=== PATIENT | male | born 1930 | race Caucasian/White ===

== ENCOUNTER 2018-04-27 15:53 | Emergency (ER) | payer OTHER ==
[~2018-04-27] VITALS: Ht 172.7 cm; Wt 68.0 kg
[~2018-04-27 15:53] MED LIST: ALBU90OI6 INH; AMOX50SU PO; ASPI81CH PO; Advair Hfa 230-12 GM INH; CELE200 PO; DIAZ5 PO; DIFL500; DILT240; DULO30 PO; DULO60; FURO20 PO; FURO40 PO; GABA300 PO; GLIM2 PO; GLIP5 PO; GLYB5; HYDR1TAB94 PO; HYDROCODON-ACE1 EAC3 PO; IBUP600 PO; ISOMON30; LISI5 PO; MECL25 PO; METF500; METF500 PO; METO2.5 PO; METO50ER PO; NEBI5 PO; NITR.4SL; NORT10 PO; OMEP20ER PO; OXYACE5T PO; POTCHL10ER PO; Prinivil10 MG PO; RXERYTOPTH OS; TAMS.4ER; WATER PILL
[2018-04-27 16:46] LABS: BASOPHILS ABSOLUTE AUTO 0.01 K/mm3 (0.00-0.23); BASOPHILS PERCENT AUTO 0 % (0-2); EOSINOPHILS ABSOLUTE AUTO 0.08 K/mm3 (0.00-0.68); EOSINOPHILS PERCENT AUTO 1 % (0-6); Hemoglobin 14.1 g/dL (13.5-17.5); IMMATURE GRAN ABSOLUTE AUTO 0.05 K/mm3 (0.00-0.10); IMMATURE GRAN PERCENT AUTO 1 % (0-1); LYMPHOCYTES ABSOLUTE AUTO 1.64 K/mm3 (0.84-5.20); LYMPHOCYTES PERCENT AUTO 20 % (21-46); MONOCYTES ABSOLUTE AUTO 0.88 K/mm3 (0.16-1.47); MONOCYTES PERCENT AUTO 11 % (4-13); Mean Corpuscular HGB 33.9 pg (26.0-34.0); Mean Corpuscular HGB Conc 34.4 g/dL (31.5-36.5); Mean Corpuscular Volume 99 fL (80-100); Mean Platelet Volume 9.6 fL (9.1-12.4); NEUTROPHILS ABSOLUTE AUTO 5.69 K/mm3 (1.96-9.15); NEUTROPHILS PERCENT AUTO 68 % (41-73); Platelet Count 133 K/mm3 (150-400); RDW Coefficient Variation 12.4 % (11.7-14.2); RDW Standard Deviation 45.1 fL (35.1-46.3); Red Blood Cell Count 4.16 M/mm3 (4.30-5.90); White Blood Cell Count 8.35 K/mm3 (4.00-11.30)
[2018-04-27 16:58] LABS: Prothrombin Time Results 10.3 Sec (9.7-11.5)
[2018-04-27 17:05] LABS: Alanine Aminotransfer (ALT/SGP 26 U/L (12-78); Albumin, Blood 3.5 g/dL (3.4-5.0); Alk Phos 75 U/L (50-136); Anion Gap 8 mmol/L (6-16); Aspartate Aminotrans (AST/SGOT 16 U/L (12-37); Bilirubin, Total 0.8 mg/dL (0.1-1.0); Blood Urea Nitrogen 17 mg/dL (8-24); Bun/Creatinine Ratio 18.8 (12.0-20.0); CO2, Blood 30 mmol/L (21-32); Calcium, Blood 9.2 mg/dL (8.5-10.1); Chloride, Blood 102 mmol/L (98-108); Globulin, Blood 3.6 g/dL (2.2-4.0); Glomerular Filtration Rate >60 (60-); Glucose, Blood 155 mg/dL (70-99); Sodium, Blood 140 mmol/L (136-145); Total Protein, Blood 7.1 g/dL (6.4-8.2)
[2018-04-27] MEDS ORDERED: Norco 5-325 Ta1 EACH PO (17:58)
[2018-04-27] MEDS ORDERED: ONDA4ODT MM (17:58)
== END 2018-04-27 18:30 | disposition home or self-care (01) ==
LOC: ER 15:53
PROVIDERS: Physician Assistant
DX: S16.1XXA Strain of muscle, fascia and tendon at neck level, initial encounter (principal); S00.81XA Abrasion of other part of head, initial encounter; S80.02XA Contusion of left knee, initial encounter; S20.219A Contusion of unspecified front wall of thorax, initial encounter; Z23 Encounter for immunization; E11.9 Type 2 diabetes mellitus without complications; Z79.82 Long term (current) use of aspirin; Z79.899 Other long term (current) drug therapy; Z79.84 Long term (current) use of oral hypoglycemic drugs; Z87.891 Personal history of nicotine dependence; W18.30XA Fall on same level, unspecified, initial encounter
CPT/HCPCS: 70450; 71260; 72125; 74177; 80053; 83690; 85025; 85610; 85730; 90714; 96372; 96374; 96375; 99285-25; J3010; Q9967

== ENCOUNTER 2019-04-05 15:31 | Observation (INO) | payer OTHER ==
[~2019-04-05] VITALS: Ht 172.7 cm; Wt 72.5 kg
[~2019-04-05 15:31] MED LIST changes: +Norco 5-325 Ta1 EACH PO; -OMEP20ER PO; +ONDA4ODT MM; +Prilosec Otc20 MG PO
[2019-04-05 15:48] LABS: Source, Urine Catheter
[2019-04-05 15:53] LABS: BASOPHILS ABSOLUTE AUTO 0.02 K/mm3 (0.00-0.23); BASOPHILS PERCENT AUTO 0 % (0-2); EOSINOPHILS ABSOLUTE AUTO 0.09 K/mm3 (0.00-0.68); EOSINOPHILS PERCENT AUTO 1 % (0-6); Hematocrit 43.1 % (37.0-53.0); Hemoglobin 14.4 g/dL (13.5-17.5); IMMATURE GRAN ABSOLUTE AUTO 0.03 K/mm3 (0.00-0.10); IMMATURE GRAN PERCENT AUTO 0 % (0-1); LYMPHOCYTES ABSOLUTE AUTO 2.29 K/mm3 (0.84-5.20); LYMPHOCYTES PERCENT AUTO 27 % (21-46); MONOCYTES PERCENT AUTO 8 % (4-13); Mean Corpuscular HGB 33.6 pg (26.0-34.0); Mean Corpuscular HGB Conc 33.4 g/dL (31.5-36.5); Mean Corpuscular Volume 101 fL (80-100); Mean Platelet Volume 9.2 fL (9.1-12.4); NEUTROPHILS ABSOLUTE AUTO 5.27 K/mm3 (1.96-9.15); NEUTROPHILS PERCENT AUTO 63 % (41-73); Platelet Count 120 K/mm3 (150-400); RDW Coefficient Variation 12.7 % (11.7-14.2); RDW Standard Deviation 47.2 fL (35.1-46.3); Red Blood Cell Count 4.28 M/mm3 (4.30-5.90)
[2019-04-05 15:56] LABS: Bilirubin, Urine Neg (Neg); Blood, Urine Neg (Neg); Glucose Qualitative, Urine Neg (Neg); Ketones, Urine Neg (Neg); Leukocyte Esterase, Urine Neg (Neg); Nitrite, Urine Neg (Neg); Protein, Urine Neg (Neg); Urobilinogen, Urine NORM (Normal)
[2019-04-05 16:07] LABS: Appearance, Urine Clear (Clear); Color, Urine Yellow (P-Yellow)
[2019-04-05 16:10] LABS: U Amphetamine Screen Not Detected; U Barbituate Screen Not Detected; U Benzodiazapine Screen Not Detected; U Buprenorphine Screen Not Detected; U Cannabinoids Screen Not Detected; U Cocaine Screen Not Detected; U Methadone Screen Not Detected; U Methamphetamine Screen Not Detected; U Opiates Screen DETECTED; U Oxycodone Screen Not Detected; U Phencyclidine Screen Not Detected; U Propoxyphene Screen Not Detected
[2019-04-05 16:13] LABS: Alanine Aminotransfer (ALT/SGP 15 U/L (12-78); Albumin, Blood 3.8 g/dL (3.4-5.0); Albumin/Globulin Ratio 1.1 (0.8-1.8); Alk Phos 83 U/L (50-136); Anion Gap 7 mmol/L (6-16); Aspartate Aminotrans (AST/SGOT 14 U/L (12-37); Bilirubin, Total 0.9 mg/dL (0.1-1.0); Blood Urea Nitrogen 16 mg/dL (8-24); Bun/Creatinine Ratio 16.8 (12.0-20.0); CO2, Blood 30 mmol/L (21-32); Calcium, Blood 8.9 mg/dL (8.5-10.1); Chloride, Blood 101 mmol/L (98-108); Creatinine, Blood 0.95 mg/dL (0.60-1.20); Ethanol (Alcohol), Blood, Med <3 mg/dL; Globulin, Blood 3.5 g/dL (2.2-4.0); Glomerular Filtration Rate >60 (60-); Glucose, Blood 138 mg/dL (70-99); Potassium, Blood 3.8 mmol/L (3.5-5.5); Sodium, Blood 138 mmol/L (136-145); Total Protein, Blood 7.3 g/dL (6.4-8.2)
[2019-04-05 17:40] LABS: International Normalized Ratio 0.97; Prothrombin Time Results 10.3 Sec (9.7-11.5)
[2019-04-05 17:43] LABS: Magnesium, Blood 2.3 mg/dL (1.6-2.4); Troponin I <0.015 ng/mL (0.000-0.040)
[2019-04-06 05:28] LABS: Anion Gap 6 mmol/L (6-16); Blood Urea Nitrogen 20 mg/dL (8-24); Bun/Creatinine Ratio 19.4 (12.0-20.0); CO2, Blood 32 mmol/L (21-32); Calcium, Blood 8.9 mg/dL (8.5-10.1); Chloride, Blood 100 mmol/L (98-108); Creatinine, Blood 1.03 mg/dL (0.60-1.20); Glomerular Filtration Rate >60 (60-); Glucose, Blood 112 mg/dL (70-99); Potassium, Blood 3.5 mmol/L (3.5-5.5); Sodium, Blood 138 mmol/L (136-145)
--- NOTE | 2019-04-06 06:35 | NUR ---
a+o but very big sandy, able to walk to bathroom with stand by assist due to hx of falls, room air, iv in rac, call light in reach, no s/sx of nonresponsiveness, confused as to time due to time lost being unconcious, will continue to monitor, treat and assist until bsr given to incoming day shift
[2019-04-06] MEDS ORDERED: DONE10 PO (11:27)
--- NOTE | 2019-04-06 18:30 | NUR ---
PATIENT A/OX4, UP WITH FWW AND 1 ASSIST TO RESTROOM. REPORTS SEVERE PAIN TO FEET AND BACK, TYLENOL AND GABAPENTIN GIVEN TO TREAT. 16G IV TO RONEN WNL AND SL. PATIENT TOLERATING CARDIAC DIET. LARGE BRUISE TO R SIDE OF FACE/EYE FROM RECENT FALL. FALL PRECAUTIONS IN PLACE PER UNIT PROTOCOL. VSS THIS SHIFT. NSR WITH FIRST DEG BLOCK ON TELE. ACHS BLOOD SUGARS, ORAL MEDS TO CONTROL. PATIENT IS CALM AND COOPERATIVE WITH CARE, USES CALL LIGHT APPROPRIATELY FOR ASSISTANCE.
[2019-04-07 04:49] LABS: Hematocrit 41.2 % (37.0-53.0); Hemoglobin 13.7 g/dL (13.5-17.5); Mean Corpuscular HGB 33.3 pg (26.0-34.0); Mean Corpuscular HGB Conc 33.3 g/dL (31.5-36.5); Mean Corpuscular Volume 100 fL (80-100); Mean Platelet Volume 9.4 fL (9.1-12.4); Platelet Count 121 K/mm3 (150-400); RDW Coefficient Variation 12.8 % (11.7-14.2); RDW Standard Deviation 47.4 fL (35.1-46.3); Red Blood Cell Count 4.12 M/mm3 (4.30-5.90); White Blood Cell Count 8.35 K/mm3 (4.00-11.30)
[2019-04-07 05:02] LABS: Anion Gap 6 mmol/L (6-16); Blood Urea Nitrogen 27 mg/dL (8-24); Bun/Creatinine Ratio 24.3 (12.0-20.0); CO2, Blood 31 mmol/L (21-32); Calcium, Blood 8.9 mg/dL (8.5-10.1); Chloride, Blood 101 mmol/L (98-108); Creatinine, Blood 1.11 mg/dL (0.60-1.20); Glomerular Filtration Rate >60 (60-); Glucose, Blood 99 mg/dL (70-99); Sodium, Blood 138 mmol/L (136-145)
--- NOTE | 2019-04-07 05:20 | NUR ---
Rn summary: Patient is alert and oriented. He is very [place]. Pt is up to BR with 1 assist and walker. Patient did sit up in his chair at beginning of shift. Pt has rested well in bed. Cooperative and pleasant. BP runs a little low, decreasing if he is sitting up. Pt has not used call light, bed alarm on for safety. Frequent checks. Plan is for him to be DC'd home today.
[2019-04-07] MEDS ORDERED: Prinivil10 MG PO (10:45)
--- NOTE | 2019-04-07 11:20 | NUR ---
PATIENT D/C'D TO HOME WITH . D/C INSTRUCTIONS AND EDUCATION DISCUSSED WITH PATIENT AND COPY PROVIDED. PATIENT DENIES ANY FURTHER QUESTIONS OR CONCERNS.RX MEDICATIONS FAXED TO [facility].
--- NOTE | 2019-04-07 14:31 | NUR ---
Pt. reportsdoing well, encouraged pt. and pt. may go home today or [facility].
== END 2019-04-07 11:25 | disposition home or self-care (01) ==
LOC: ER 15:31 → ERHOLD 15:32 → MEDS 19:28 → ENPENDDIS 04-07 10:17 → MEDS 04-07 11:25
PROVIDERS: Emergency Medicine; Internal Medicine; Nurse Practitioner Acute Care; ADMIT Internal Medicine
DX: I95.1 Orthostatic hypotension (principal); G92 Toxic encephalopathy; J44.9 Chronic obstructive pulmonary disease, unspecified; I10 Essential (primary) hypertension; K21.9 Gastro-esophageal reflux disease without esophagitis; F32.9 Major depressive disorder, single episode, unspecified; R10.9 Unspecified abdominal pain; E11.40 Type 2 diabetes mellitus with diabetic neuropathy, unspecified; Z79.899 Other long term (current) drug therapy; Z79.01 Long term (current) use of anticoagulants
CPT/HCPCS: 36415; 51702; 70450; 71045; 80048; 80053; 81003; 82947; 83735; 84443; 84484; 85025; 85027; 85379; 85610; 93005; 93010; 94640; 94760; 96372; 96374-59; 97110; 97116; 97162; 99285-25; A9270; G0378; G0480; J1650; J2310

== ENCOUNTER 2019-04-25 17:48 | Observation (INO) | payer OTHER ==
[~2019-04-25] VITALS: Ht 177.8 cm; Wt 80.0 kg
[~2019-04-25 17:48] MED LIST changes: +DONE10 PO
[2019-04-25 18:20] LABS: BASOPHILS PERCENT AUTO 0 % (0-2); EOSINOPHILS ABSOLUTE AUTO 0.08 K/mm3 (0.00-0.68); EOSINOPHILS PERCENT AUTO 1 % (0-6); Hematocrit 36.7 % (37.0-53.0); Hemoglobin 12.2 g/dL (13.5-17.5); IMMATURE GRAN ABSOLUTE AUTO 0.03 K/mm3 (0.00-0.10); IMMATURE GRAN PERCENT AUTO 1 % (0-1); LYMPHOCYTES ABSOLUTE AUTO 1.73 K/mm3 (0.84-5.20); LYMPHOCYTES PERCENT AUTO 26 % (21-46); MONOCYTES ABSOLUTE AUTO 0.67 K/mm3 (0.16-1.47); MONOCYTES PERCENT AUTO 10 % (4-13); Mean Corpuscular HGB 33.3 pg (26.0-34.0); Mean Corpuscular HGB Conc 33.2 g/dL (31.5-36.5); Mean Corpuscular Volume 100 fL (80-100); Mean Platelet Volume 9.4 fL (9.1-12.4); NEUTROPHILS ABSOLUTE AUTO 4.05 K/mm3 (1.96-9.15); NEUTROPHILS PERCENT AUTO 62 % (41-73); Platelet Count 129 K/mm3 (150-400); RDW Coefficient Variation 12.9 % (11.7-14.2); RDW Standard Deviation 47.4 fL (35.1-46.3); Red Blood Cell Count 3.66 M/mm3 (4.30-5.90); White Blood Cell Count 6.56 K/mm3 (4.00-11.30)
[2019-04-25 18:46] LABS: Alanine Aminotransfer (ALT/SGP 16 U/L (12-78); Albumin, Blood 3.4 g/dL (3.4-5.0); Albumin/Globulin Ratio 1.1 (0.8-1.8); Alk Phos 66 U/L (50-136); Anion Gap 5 mmol/L (6-16); Aspartate Aminotrans (AST/SGOT 13 U/L (12-37); Bilirubin, Total 0.7 mg/dL (0.1-1.0); Blood Urea Nitrogen 19 mg/dL (8-24); CO2, Blood 29 mmol/L (21-32); Calcium, Blood 8.3 mg/dL (8.5-10.1); Chloride, Blood 102 mmol/L (98-108); Glomerular Filtration Rate >60 (60-); Glucose, Blood 106 mg/dL (70-99); Potassium, Blood 4.2 mmol/L (3.5-5.5); Sodium, Blood 136 mmol/L (136-145); Total Protein, Blood 6.4 g/dL (6.4-8.2)
[2019-04-25 18:48] LABS: Troponin I <0.015 ng/mL (0.000-0.040)
[2019-04-25] MEDS ORDERED: CLOP75 PO (19:36)
[2019-04-25] MEDS ORDERED: CETI5 PO (19:36)
[2019-04-25] MEDS ORDERED: CLOTRIMAZOLE10 ML TOP (19:37)
[2019-04-25] MEDS ORDERED: VOLTAREN100 GM TOP (19:38)
[2019-04-25] MEDS ORDERED: Nizoral120 M1 TOP (19:40)
[2019-04-25] MEDS ORDERED: LIDO700A20 TOP (19:41)
[2019-04-25] MEDS ORDERED: TRIA15CR3 TOP (19:41)
[2019-04-25] MEDS ORDERED: MEMA5TAB PO (19:41)
[2019-04-25] MEDS ORDERED: FURO40 PO (19:42)
[2019-04-25] MEDS ORDERED: METF500 PO (19:42)
[2019-04-25] MEDS ORDERED: GLIM2 PO (19:42)
[2019-04-25] MEDS ORDERED: POTA10T PO (19:43)
--- NOTE | 2019-04-25 23:30 | NUR ---
PT ARRIVES TO ICU 14 VIA GURNEY FROM ER MED/TELE OBS PATIENT FOR DX OF SYNCOPE. PT IS NOTED EXTREMELY HARD OF HEARING, HE ADMITS TO DIZZINESS WITH MOVEMENT, STATES THAT HE FALLS FREQUENTLY AT HOME "THE CONCRETE AND I ARE OLD FRIENDS" DESCRIBES RECENT FALL THAT RESULTED IN CURRENT BRUISING TO RIGHT EYE/FOREHEAD, DESCRIBES "HOW MUCH BETTER" IT IS. HE STATES THAT HE DOES NOT REMEMBER HITTING THE CONCRETE AT HOME BUT THAT HE REMEMBERS THE BACK OF HIS HEAD BEING PAINFUL AND REALIZING HE WAS ON THE GROUND. HE IS SPEAKING IN FULL SENTANCES AND IS NOTED TO LAUGH FREQUENTLY. HE DOES C/O PAIN INTERMITTENTLY TO "JUST HERE" AND POINTS TO SPINE BETWEEN THIS RN'S SCAPULAE. HE ADMITS TO PAIN IN RIGH NECK AND OCCIPUT. SMALL ABRASIONS ARE NOTED TO POSTERIOR SCALP WITH 1 LACERATITON APPROX 3-4 CM, WOUNDS ARE CLEANED AND OTC ANTIBIOTIC OINTMENT IS APPLIED, PT TOLERATED WELL. LUNGS ARE CLEAR THROUGHOUT, SATS LOW 90S ON ROOM AIR, NO INCREASED WORK OF BREATHING IS NOTED, RESP RATE HIGH TEENS. HRR, SINUS MAKAYLA ON MONITOR, RATE MID TO UPPER 50S, BP WNL. ABD SOFT, ACTIVE BOWEL TONES ARE NOTED, PT DENIES N/V, REQUESTS UP TO BSC FOR BOWEL MOVEMENT. 18 G IV TO RIGHT AC, FLUSHES WELL, DRESSING CDI, SITE WNL.
[2019-04-26 03:29] LABS: BASOPHILS ABSOLUTE AUTO 0.01 K/mm3 (0.00-0.23); BASOPHILS PERCENT AUTO 0 % (0-2); EOSINOPHILS ABSOLUTE AUTO 0.08 K/mm3 (0.00-0.68); EOSINOPHILS PERCENT AUTO 1 % (0-6); Hematocrit 38.6 % (37.0-53.0); Hemoglobin 12.8 g/dL (13.5-17.5); IMMATURE GRAN ABSOLUTE AUTO 0.04 K/mm3 (0.00-0.10); IMMATURE GRAN PERCENT AUTO 1 % (0-1); LYMPHOCYTES PERCENT AUTO 31 % (21-46); MONOCYTES ABSOLUTE AUTO 0.79 K/mm3 (0.16-1.47); MONOCYTES PERCENT AUTO 10 % (4-13); Mean Corpuscular HGB 33.6 pg (26.0-34.0); Mean Corpuscular HGB Conc 33.2 g/dL (31.5-36.5); Mean Corpuscular Volume 101 fL (80-100); Mean Platelet Volume 9.5 fL (9.1-12.4); NEUTROPHILS ABSOLUTE AUTO 4.47 K/mm3 (1.96-9.15); NEUTROPHILS PERCENT AUTO 58 % (41-73); Platelet Count 141 K/mm3 (150-400); RDW Coefficient Variation 13.1 % (11.7-14.2); RDW Standard Deviation 48.7 fL (35.1-46.3); Red Blood Cell Count 3.81 M/mm3 (4.30-5.90); White Blood Cell Count 7.79 K/mm3 (4.00-11.30)
[2019-04-26] MEDS ORDERED: Aspirin EC81 MG PO (03:44)
[2019-04-26] MEDS ORDERED: DONE10 PO (03:45)
[2019-04-26] MEDS ORDERED: DULO60 PO (03:47)
[2019-04-26] MEDS ORDERED: GABA600 PO (03:48)
[2019-04-26] MEDS ORDERED: Prinivil10 MG PO (03:56)
[2019-04-26] MEDS ORDERED: OMEP20ER PO (03:57)
[2019-04-26] MEDS ORDERED: CELE200 PO (03:59)
[2019-04-26] MEDS ORDERED: NEBI5 PO (04:01)
[2019-04-26 05:13] LABS: U Amphetamine Screen Not Detected; U Barbituate Screen Not Detected; U Benzodiazapine Screen Not Detected; U Buprenorphine Screen Not Detected; U Cannabinoids Screen Not Detected; U Cocaine Screen Not Detected; U Methadone Screen Not Detected; U Methamphetamine Screen Not Detected; U Opiates Screen Not Detected; U Oxycodone Screen Not Detected; U Phencyclidine Screen Not Detected; U Propoxyphene Screen Not Detected
--- NOTE | 2019-04-26 06:19 | NUR ---
PT RESTS QUIETLY AFTER ADMIT. 1-2 PERSON ASSIST TO BSC FOR BALANCE ASSISTANCE AND LINE MANAGEMENT PT TOLERATES WELL ALTHOUGH DIZZINESS IS REPORTED TO CONTINUE. INTERMITTENT PAIN HAS BEEN WELL CONTROLLED WITH NONPHARMACOLOGIC INTERVENTIONS.
--- NOTE | 2019-04-26 08:00 | NUR ---
Recieved report from Sherita DUKE. Patient sleeping in bed with HOB at 30 degrees. he is in SR/SB 50-60's and systolics deb blossom 130's. Will let sleep until breakfast arrives.
--- NOTE | 2019-04-26 09:30 | NUR ---
Patient awaked and is up on bedside cammkode with one assist. He is on RA and sats mid to upper 90%'s. He is very very [place] and need to speak loudly very close. He has 18ga IV RAc dressing intact and site WNL's and is flushed and SL'd. Assisted him back to bed and PT is here to work on him. He denies any current needs or pain.
--- NOTE | 2019-04-26 12:24 | NUR ---
VS done. Patient remains up in chair and sitting and taling with . CBG's WNL's and no coverage needed. He is also sitting up and tolerating lunch without any assistance
--- NOTE | 2019-04-26 14:49 | NUR ---
OT in room with patient, just prior he started to fall a sleep in chair and had him get back to bed with SBA. brought hearing aids and he has on currently and still very [place]. He is able to communicate his needs.
--- NOTE | 2019-04-26 18:24 | NUR ---
patient was up to bedside cammode and had large bm for 3rd of the day and about 700 unrine and got back in chair. He is sitting up eating dinner without assist. VSS. He remains omn RA and sats mid to upper 90%'s. Donal came by and wanted to assure that SS was invilved as they find him down at home in the [facility] for rehab medicine alot.
--- NOTE | 2019-04-26 21:36 | NUR ---
START OF SHIFT: REPORT FROM CORNEL DUKE. PT SLEEPING. PT MED/TELE WITH HR 50'S-60'S. SKIN PWD. PT APPEARED COMFORTABLE. PT AWAKENED AT 2100 FOR EVENING MEDS AND ASSESSMENT. PT AWAKENED PLEASANT AND JOKING WITH STAFF. PT INFORMED OF TRANSFER TO [facility] ROOM AND IS CURRENTLY ENROUTE TO ROOM 224. REPORT WAS GIVEN RADHA DUKE. PT TRANSFERRED VIA W/C AND TRANSFERRED TO W/C WITHOUT DIFFICULTY.
[2019-04-27 04:33] LABS: Albumin, Blood 3.1 g/dL (3.4-5.0); Anion Gap 6 mmol/L (6-16); Blood Urea Nitrogen 20 mg/dL (8-24); CO2, Blood 28 mmol/L (21-32); Calcium, Blood 8.3 mg/dL (8.5-10.1); Chloride, Blood 103 mmol/L (98-108); Creatinine, Blood 0.91 mg/dL (0.60-1.20); Glomerular Filtration Rate >60 (60-); Glucose, Blood 135 mg/dL (70-99); Phosphorus, Blood 3.5 mg/dL (2.5-4.9); Potassium, Blood 4.4 mmol/L (3.5-5.5); Sodium, Blood 137 mmol/L (136-145)
--- NOTE | 2019-04-27 05:30 | NUR ---
SHIFT SUMMARY PT ICU TRANSFER THIS SHIFT. AAOX4/LOS COYOTES. DISCOMFORT FROM CHRONIC NEUROPATHY TO BLE AT NOC CONTROLLED WITH SCHEDULED GABAPENTIN + TORADOL X1 THIS SHIFT. NO NAUSEA/EMESIS. PT UP TO RESTROOM SBA WITH GAIT BELT, BACK TO BED. GOOD PO INTAKE + OUTPUT WITH X2 BM THIS AM. TELEMETRY IN PLACE, NSR WITH 1ST DEGREE BLOCK IN 70s THIS AM PER TELEMETRY. PT RESTING IN BED AT THIS TIME, NADN. BED ALARM ON FOR SAFETY. PT CALLED FOR ASSISTANCE WHEN NEEDED T/O NIGHT + CALL LIGHT WITHIN REACH.
--- NOTE | 2019-04-27 10:22 | NUR ---
EDUCATION DISCUSSED WITH PATIENT AND HIS ORTHOSTATIC PRECAUTIONS WHEN CHANGING POSITION FROM LYING TO SITTING AND STANDING AND TO INCREASE FLUID INTAKE TO DECREASE POTENTIAL FOR DEHYDRATION. PATIENTS TELLS ME PATIENT DOES GET UP SLOWLY WHEN CHANGING POSITION
--- NOTE | 2019-04-27 14:19 | NUR ---
spoke with dr crane regarding patients orthostatic bp's and patients physical therapy evaluation results. patient will be discharged home
--- NOTE | 2019-04-27 16:08 | NUR ---
discharge discharge instructions reviewed with patient and his . reviewed previous teaching regarding increasing fluid intake and changing positions slowly to help prevent dizziness. patients states she has called [facility] provider for a follow up appt. patient discharged to home with his
== END 2019-04-27 16:36 | disposition home health service (06) ==
LOC: ER 17:48 → ERHOLD 17:49 → ICUW 23:23 → SURS 23:30
PROVIDERS: Emergency Medicine; Internal Medicine; ADMIT Hospitalist
DX: R55 Syncope and collapse (principal); S22.31XA Fracture of one rib, right side, initial encounter for closed fracture; S00.11XA Contusion of right eyelid and periocular area, initial encounter; S00.01XA Abrasion of scalp, initial encounter; I44.0 Atrioventricular block, first degree; I25.10 Atherosclerotic heart disease of native coronary artery without angina pectoris; E11.42 Type 2 diabetes mellitus with diabetic polyneuropathy; K21.9 Gastro-esophageal reflux disease without esophagitis; F03.90 Unspecified dementia, unspecified severity, without behavioral disturbance, psychotic disturbance, mood disturbance, and anxiety; G47.33 Obstructive sleep apnea (adult) (pediatric); D69.6 Thrombocytopenia, unspecified; D64.9 Anemia, unspecified; Z99.81 Dependence on supplemental oxygen; Z87.891 Personal history of nicotine dependence; Z79.899 Other long term (current) drug therapy; Z79.01 Long term (current) use of anticoagulants; Z79.84 Long term (current) use of oral hypoglycemic drugs; W19.XXXA Unspecified fall, initial encounter; Y92.096 Garden or yard of other non-institutional residence as the place of occurrence of the external cause
CPT/HCPCS: 36415; 70450; 71045; 71260; 72125; 73502; 80053; 80069; 82947; 83036; 84484; 85025; 93005; 93010; 96372; 96374-59; 96375-59; 97116; 97162; 97166; 97530; 97535; 99285-25; G0378; J1885; J2270; J3010; Q9967

== ENCOUNTER 2019-10-21 09:57 | Inpatient (IN) | payer OTHER ==
[~2019-10-21] VITALS: Ht 182.9 cm; Wt 81.4 kg
[~2019-10-21 09:57] MED LIST changes: +Aspirin EC81 MG PO; +CETI5 PO; +CLOP75 PO; +CLOTRIMAZOLE10 ML TOP; +DULO60 PO; +LIDO700A20 TOP; +MEMA5TAB PO; +Nizoral120 M1 TOP; +OMEP20ER PO; +POTA10T PO; +TRIA15CR3 TOP; +VOLTAREN100 GM TOP
[2019-10-21] MEDS ORDERED: PREG100 PO (10:16)
[2019-10-21] MEDS ORDERED: HYDROCODONE-AC1 EAC1 PO (10:17)
[2019-10-21 12:53] LABS: BASOPHILS ABSOLUTE AUTO 0.01 K/mm3 (0.00-0.23); BASOPHILS PERCENT AUTO 0 % (0-2); EOSINOPHILS ABSOLUTE AUTO 0.15 K/mm3 (0.00-0.68); EOSINOPHILS PERCENT AUTO 2 % (0-6); Hematocrit 40.4 % (37.0-53.0); Hemoglobin 13.5 g/dL (13.5-17.5); IMMATURE GRAN ABSOLUTE AUTO 0.03 K/mm3 (0.00-0.10); IMMATURE GRAN PERCENT AUTO 0 % (0-1); LYMPHOCYTES ABSOLUTE AUTO 1.43 K/mm3 (0.84-5.20); LYMPHOCYTES PERCENT AUTO 19 % (21-46); MONOCYTES ABSOLUTE AUTO 0.52 K/mm3 (0.16-1.47); MONOCYTES PERCENT AUTO 7 % (4-13); Mean Corpuscular HGB Conc 33.4 g/dL (31.5-36.5); Mean Corpuscular Volume 102 fL (80-100); Mean Platelet Volume 10.3 fL (9.1-12.4); NEUTROPHILS ABSOLUTE AUTO 5.49 K/mm3 (1.96-9.15); NEUTROPHILS PERCENT AUTO 72 % (41-73); Platelet Count 131 K/mm3 (150-400); RDW Coefficient Variation 13.2 % (11.7-14.2); RDW Standard Deviation 49.8 fL (35.1-46.3); Red Blood Cell Count 3.97 M/mm3 (4.30-5.90); White Blood Cell Count 7.63 K/mm3 (4.00-11.30)
[2019-10-21] MEDS ORDERED: GABA600 PO (13:15)
[2019-10-21] MEDS ORDERED: TRAM50 PO (13:15)
[2019-10-21] MEDS ORDERED: Ventolin/Prove6.7 GM INH (13:16)
[2019-10-21] MEDS ORDERED: METF500 PO (13:30)
[2019-10-21] MEDS ORDERED: ONDA4ODT PO (13:32)
[2019-10-21] MEDS ORDERED: Fiorinal Capsu1 EACH PO (13:33)
[2019-10-21 14:22] LABS: Alanine Aminotransfer (ALT/SGP 17 U/L (12-78); Albumin, Blood 3.1 g/dL (3.4-5.0); Alk Phos 72 U/L (50-136); Anion Gap 4 mmol/L (6-16); Aspartate Aminotrans (AST/SGOT 16 U/L (12-37); Bilirubin, Total 0.5 mg/dL (0.1-1.0); Blood Urea Nitrogen 17 mg/dL (8-24); Bun/Creatinine Ratio 21.4 (12.0-20.0); CO2, Blood 27 mmol/L (21-32); Calcium, Blood 7.9 mg/dL (8.5-10.1); Chloride, Blood 112 mmol/L (98-108); Globulin, Blood 3.2 g/dL (2.2-4.0); Glomerular Filtration Rate >60 (60-); Glucose, Blood 119 mg/dL (70-99); Potassium, Blood 3.4 mmol/L (3.5-5.5); Sodium, Blood 143 mmol/L (136-145); Total Protein, Blood 6.3 g/dL (6.4-8.2)
[2019-10-21 14:46] LABS: International Normalized Ratio 0.98; Prothrombin Time Results 10.5 Sec (9.7-11.5)
[2019-10-22 03:34] LABS: BASOPHILS PERCENT AUTO 0 % (0-2); EOSINOPHILS ABSOLUTE AUTO 0.11 K/mm3 (0.00-0.68); EOSINOPHILS PERCENT AUTO 1 % (0-6); Hemoglobin 12.8 g/dL (13.5-17.5); IMMATURE GRAN ABSOLUTE AUTO 0.02 K/mm3 (0.00-0.10); IMMATURE GRAN PERCENT AUTO 0 % (0-1); LYMPHOCYTES ABSOLUTE AUTO 1.32 K/mm3 (0.84-5.20); LYMPHOCYTES PERCENT AUTO 17 % (21-46); MONOCYTES ABSOLUTE AUTO 0.74 K/mm3 (0.16-1.47); MONOCYTES PERCENT AUTO 10 % (4-13); Mean Corpuscular HGB 33.6 pg (26.0-34.0); Mean Corpuscular HGB Conc 32.8 g/dL (31.5-36.5); Mean Corpuscular Volume 102 fL (80-100); Mean Platelet Volume 9.8 fL (9.1-12.4); NEUTROPHILS ABSOLUTE AUTO 5.43 K/mm3 (1.96-9.15); NEUTROPHILS PERCENT AUTO 71 % (41-73); Platelet Count 113 K/mm3 (150-400); RDW Coefficient Variation 13.4 % (11.7-14.2); RDW Standard Deviation 50.9 fL (35.1-46.3); Red Blood Cell Count 3.81 M/mm3 (4.30-5.90); White Blood Cell Count 7.62 K/mm3 (4.00-11.30)
[2019-10-22 03:52] LABS: Alanine Aminotransfer (ALT/SGP 16 U/L (12-78); Albumin, Blood 3.1 g/dL (3.4-5.0); Albumin/Globulin Ratio 0.9 (0.8-1.8); Alk Phos 75 U/L (50-136); Anion Gap 6 mmol/L (6-16); Aspartate Aminotrans (AST/SGOT 18 U/L (12-37); Bilirubin, Total 0.9 mg/dL (0.1-1.0); Blood Urea Nitrogen 16 mg/dL (8-24); Bun/Creatinine Ratio 17.2 (12.0-20.0); CO2, Blood 28 mmol/L (21-32); Calcium, Blood 8.2 mg/dL (8.5-10.1); Chloride, Blood 107 mmol/L (98-108); Creatinine, Blood 0.93 mg/dL (0.60-1.20); Globulin, Blood 3.3 g/dL (2.2-4.0); Glomerular Filtration Rate >60 (60-); Glucose, Blood 148 mg/dL (70-99); Magnesium, Blood 1.9 mg/dL (1.6-2.4); Potassium, Blood 4.3 mmol/L (3.5-5.5); Sodium, Blood 141 mmol/L (136-145); Total Protein, Blood 6.4 g/dL (6.4-8.2)
[2019-10-22 06:25] LABS: Source, Urine Catheter
[2019-10-22 06:26] LABS: Bilirubin, Urine Neg (Neg); Blood, Urine Neg (Neg); Glucose Qualitative, Urine Neg (Neg); Ketones, Urine Neg (Neg); Leukocyte Esterase, Urine Neg (Neg); Nitrite, Urine Neg (Neg); Protein, Urine Neg (Neg); Specific Gravity, Urine 1.025 (1.003-1.022); Urobilinogen, Urine NORM (Normal)
[2019-10-22 06:27] LABS: Appearance, Urine Clear (Clear); Color, Urine Yellow (P-Yellow)
[2019-10-22 13:39] LABS: Hematocrit 35.3 % (37.0-53.0); Hemoglobin 11.5 g/dL (13.5-17.5)
[2019-10-23 04:55] LABS: BASOPHILS ABSOLUTE AUTO 0.01 K/mm3 (0.00-0.23); BASOPHILS PERCENT AUTO 0 % (0-2); EOSINOPHILS ABSOLUTE AUTO 0.08 K/mm3 (0.00-0.68); EOSINOPHILS PERCENT AUTO 1 % (0-6); Hematocrit 29.4 % (37.0-53.0); Hemoglobin 9.8 g/dL (13.5-17.5); IMMATURE GRAN ABSOLUTE AUTO 0.03 K/mm3 (0.00-0.10); IMMATURE GRAN PERCENT AUTO 0 % (0-1); LYMPHOCYTES ABSOLUTE AUTO 1.26 K/mm3 (0.84-5.20); LYMPHOCYTES PERCENT AUTO 15 % (21-46); MONOCYTES ABSOLUTE AUTO 0.72 K/mm3 (0.16-1.47); MONOCYTES PERCENT AUTO 9 % (4-13); Mean Corpuscular HGB 33.7 pg (26.0-34.0); Mean Corpuscular HGB Conc 33.3 g/dL (31.5-36.5); Mean Corpuscular Volume 101 fL (80-100); Mean Platelet Volume 10.3 fL (9.1-12.4); NEUTROPHILS ABSOLUTE AUTO 6.38 K/mm3 (1.96-9.15); NEUTROPHILS PERCENT AUTO 75 % (41-73); Platelet Count 104 K/mm3 (150-400); RDW Coefficient Variation 13.2 % (11.7-14.2); RDW Standard Deviation 49.1 fL (35.1-46.3); Red Blood Cell Count 2.91 M/mm3 (4.30-5.90); White Blood Cell Count 8.48 K/mm3 (4.00-11.30)
[2019-10-24 04:38] LABS: BASOPHILS ABSOLUTE AUTO 0.01 K/mm3 (0.00-0.23); BASOPHILS PERCENT AUTO 0 % (0-2); EOSINOPHILS ABSOLUTE AUTO 0.08 K/mm3 (0.00-0.68); EOSINOPHILS PERCENT AUTO 1 % (0-6); Hematocrit 30.8 % (37.0-53.0); Hemoglobin 10.4 g/dL (13.5-17.5); IMMATURE GRAN ABSOLUTE AUTO 0.04 K/mm3 (0.00-0.10); IMMATURE GRAN PERCENT AUTO 0 % (0-1); LYMPHOCYTES ABSOLUTE AUTO 1.73 K/mm3 (0.84-5.20); LYMPHOCYTES PERCENT AUTO 18 % (21-46); MONOCYTES ABSOLUTE AUTO 0.83 K/mm3 (0.16-1.47); MONOCYTES PERCENT AUTO 9 % (4-13); Mean Corpuscular HGB 34.3 pg (26.0-34.0); Mean Corpuscular HGB Conc 33.8 g/dL (31.5-36.5); Mean Corpuscular Volume 102 fL (80-100); Mean Platelet Volume 10.3 fL (9.1-12.4); NEUTROPHILS ABSOLUTE AUTO 6.87 K/mm3 (1.96-9.15); NEUTROPHILS PERCENT AUTO 72 % (41-73); Platelet Count 125 K/mm3 (150-400); RDW Coefficient Variation 13.2 % (11.7-14.2); RDW Standard Deviation 48.9 fL (35.1-46.3); Red Blood Cell Count 3.03 M/mm3 (4.30-5.90); White Blood Cell Count 9.56 K/mm3 (4.00-11.30)
[2019-10-24 05:01] LABS: Alanine Aminotransfer (ALT/SGP 17 U/L (12-78); Albumin, Blood 2.8 g/dL (3.4-5.0); Albumin/Globulin Ratio 0.8 (0.8-1.8); Alk Phos 65 U/L (50-136); Anion Gap 6 mmol/L (6-16); Aspartate Aminotrans (AST/SGOT 34 U/L (12-37); Bilirubin, Total 1.1 mg/dL (0.1-1.0); Blood Urea Nitrogen 14 mg/dL (8-24); Bun/Creatinine Ratio 18.5 (12.0-20.0); CO2, Blood 30 mmol/L (21-32); Calcium, Blood 8.4 mg/dL (8.5-10.1); Chloride, Blood 102 mmol/L (98-108); Creatinine, Blood 0.76 mg/dL (0.60-1.20); Globulin, Blood 3.7 g/dL (2.2-4.0); Glomerular Filtration Rate >60 (60-); Glucose, Blood 143 mg/dL (70-99); Potassium, Blood 3.6 mmol/L (3.5-5.5); Sodium, Blood 138 mmol/L (136-145); Total Protein, Blood 6.5 g/dL (6.4-8.2)
[2019-10-24 05:04] LABS: Thyroid Stimulating Hormone 0.752 uIU/mL (0.360-4.800)
[2019-10-24 05:07] LABS: Percent Saturation 10.7 % (20.0-50.0)
[2019-10-26 08:14] LABS: BASOPHILS ABSOLUTE AUTO 0.01 K/mm3 (0.00-0.23); BASOPHILS PERCENT AUTO 0 % (0-2); EOSINOPHILS ABSOLUTE AUTO 0.19 K/mm3 (0.00-0.68); EOSINOPHILS PERCENT AUTO 3 % (0-6); Hematocrit 31.1 % (37.0-53.0); Hemoglobin 10.7 g/dL (13.5-17.5); IMMATURE GRAN ABSOLUTE AUTO 0.03 K/mm3 (0.00-0.10); IMMATURE GRAN PERCENT AUTO 0 % (0-1); LYMPHOCYTES ABSOLUTE AUTO 1.19 K/mm3 (0.84-5.20); LYMPHOCYTES PERCENT AUTO 17 % (21-46); MONOCYTES ABSOLUTE AUTO 0.66 K/mm3 (0.16-1.47); MONOCYTES PERCENT AUTO 10 % (4-13); Mean Corpuscular HGB 33.9 pg (26.0-34.0); Mean Corpuscular HGB Conc 34.4 g/dL (31.5-36.5); Mean Platelet Volume 10.1 fL (9.1-12.4); NEUTROPHILS ABSOLUTE AUTO 4.87 K/mm3 (1.96-9.15); NEUTROPHILS PERCENT AUTO 70 % (41-73); Platelet Count 158 K/mm3 (150-400); Red Blood Cell Count 3.16 M/mm3 (4.30-5.90); White Blood Cell Count 6.95 K/mm3 (4.00-11.30)
[2019-10-26 08:18] LABS: Mean Corpuscular Volume 98 fL (80-100)
[2019-10-26 08:47] LABS: Anion Gap 8 mmol/L (6-16); Blood Urea Nitrogen 17 mg/dL (8-24); Bun/Creatinine Ratio 22.6 (12.0-20.0); CO2, Blood 27 mmol/L (21-32); Calcium, Blood 8.2 mg/dL (8.5-10.1); Chloride, Blood 102 mmol/L (98-108); Creatinine, Blood 0.75 mg/dL (0.60-1.20); Glomerular Filtration Rate >60 (60-); Glucose, Blood 159 mg/dL (70-99); Potassium, Blood 3.2 mmol/L (3.5-5.5); Sodium, Blood 137 mmol/L (136-145)
[2019-10-27 04:53] LABS: Anion Gap 8 mmol/L (6-16); Blood Urea Nitrogen 18 mg/dL (8-24); Bun/Creatinine Ratio 22.4 (12.0-20.0); CO2, Blood 26 mmol/L (21-32); Calcium, Blood 8.3 mg/dL (8.5-10.1); Chloride, Blood 105 mmol/L (98-108); Glomerular Filtration Rate >60 (60-); Glucose, Blood 170 mg/dL (70-99); Potassium, Blood 3.4 mmol/L (3.5-5.5); Sodium, Blood 139 mmol/L (136-145)
[2019-10-28 04:34] LABS: BASOPHILS ABSOLUTE AUTO 0.02 K/mm3 (0.00-0.23); BASOPHILS PERCENT AUTO 0 % (0-2); EOSINOPHILS ABSOLUTE AUTO 0.21 K/mm3 (0.00-0.68); EOSINOPHILS PERCENT AUTO 3 % (0-6); Hematocrit 34.2 % (37.0-53.0); Hemoglobin 11.1 g/dL (13.5-17.5); IMMATURE GRAN ABSOLUTE AUTO 0.05 K/mm3 (0.00-0.10); IMMATURE GRAN PERCENT AUTO 1 % (0-1); LYMPHOCYTES ABSOLUTE AUTO 1.24 K/mm3 (0.84-5.20); LYMPHOCYTES PERCENT AUTO 18 % (21-46); MONOCYTES ABSOLUTE AUTO 0.78 K/mm3 (0.16-1.47); MONOCYTES PERCENT AUTO 11 % (4-13); Mean Corpuscular HGB 32.9 pg (26.0-34.0); Mean Corpuscular HGB Conc 32.5 g/dL (31.5-36.5); Mean Platelet Volume 10.3 fL (9.1-12.4); NEUTROPHILS ABSOLUTE AUTO 4.79 K/mm3 (1.96-9.15); NEUTROPHILS PERCENT AUTO 68 % (41-73); Platelet Count 216 K/mm3 (150-400); RDW Coefficient Variation 13.6 % (11.7-14.2); RDW Standard Deviation 50.5 fL (35.1-46.3); Red Blood Cell Count 3.37 M/mm3 (4.30-5.90); White Blood Cell Count 7.09 K/mm3 (4.00-11.30)
[2019-10-28 04:35] LABS: Mean Corpuscular Volume 102 fL (80-100)
[2019-10-28 04:52] LABS: Anion Gap 7 mmol/L (6-16); Blood Urea Nitrogen 20 mg/dL (8-24); Bun/Creatinine Ratio 26.8 (12.0-20.0); CO2, Blood 25 mmol/L (21-32); Calcium, Blood 8.4 mg/dL (8.5-10.1); Chloride, Blood 108 mmol/L (98-108); Creatinine, Blood 0.75 mg/dL (0.60-1.20); Glomerular Filtration Rate >60 (60-); Glucose, Blood 180 mg/dL (70-99); Potassium, Blood 3.9 mmol/L (3.5-5.5); Sodium, Blood 140 mmol/L (136-145)
[2019-10-31 09:07] LABS: Hematocrit 36.2 % (37.0-53.0); Hemoglobin 11.6 g/dL (13.5-17.5); Mean Corpuscular HGB 33.6 pg (26.0-34.0); Mean Corpuscular Volume 105 fL (80-100); Mean Platelet Volume 10.5 fL (9.1-12.4); Platelet Count 325 K/mm3 (150-400); RDW Coefficient Variation 14.3 % (11.7-14.2); RDW Standard Deviation 55.2 fL (35.1-46.3); Red Blood Cell Count 3.45 M/mm3 (4.30-5.90); White Blood Cell Count 12.58 K/mm3 (4.00-11.30)
[2019-10-31 09:25] LABS: BAND PERCENT MAN 6 % (0-8); BASOPHILS PERCENT MAN 0 % (0-2); EOSINOPHILS ABSOLUTE MAN 0.12 K/mm3 (0.00-0.68); EOSINOPHILS PERCENT MAN 1 % (0-6); LYMPHOCYTES ABSOLUTE MAN 1.76 K/mm3 (0.84-5.20); LYMPHOCYTES PERCENT MAN 14 % (21-46); METAMYELOCYTE ABSOLUTE MAN 0.12 K/mm3 (0.00-0.00); METAMYELOCYTE PERCENT MAN 1 % (0-0); MONOCYTES ABSOLUTE MAN 0.75 K/mm3 (0.16-1.47); MONOCYTES PERCENT MAN 6 % (4-13); NEUTROPHILS ABSOLUTE MAN 9.81 K/mm3 (1.96-9.15); SEG NEUTROPHILS PERCENT MAN 72 % (41-73); TOTAL CELLS COUNTED 100
[2019-10-31 09:29] LABS: Anion Gap 4 mmol/L (6-16); Blood Urea Nitrogen 34 mg/dL (8-24); Bun/Creatinine Ratio 30.1 (12.0-20.0); CO2, Blood 27 mmol/L (21-32); Calcium, Blood 8.8 mg/dL (8.5-10.1); Chloride, Blood 111 mmol/L (98-108); Creatinine, Blood 1.13 mg/dL (0.60-1.20); Glomerular Filtration Rate >60 (60-); Glucose, Blood 220 mg/dL (70-99); Magnesium, Blood 2.4 mg/dL (1.6-2.4); Potassium, Blood 4.6 mmol/L (3.5-5.5); Sodium, Blood 142 mmol/L (136-145)
[2019-11-01] MEDS ORDERED: Feverall650 MG PR (16:22)
[2019-11-01] MEDS ORDERED: ATROPINE 0.01%-10 ML SL (16:22)
[2019-11-01] MEDS ORDERED: LORA1 PO (16:23)
[2019-11-01] MEDS ORDERED: Transderm-Scop1 EACH TOP (16:28)
[2019-11-01] MEDS ORDERED: PROM12.5S PR (16:28)
[2019-11-01] MEDS ORDERED: MORP20L SL (16:28)
== END 2019-11-02 09:23 | DRG 469 ==
LOC: ER 09:57 → SURS 13:58 → MEDS 10-30 21:35
PROVIDERS: Emergency Medicine; Hospitalist; Internal Medicine; Orthopaedic Surgery; ADMIT Internal Medicine
PROC: 0SRS0JZ Replacement of Left Hip Joint, Femoral Surface with Synthetic Substitute, Open Approach (ICD-10-PCS; principal; 2019-10-22 08:00)
DX: S72.002A Fracture of unspecified part of neck of left femur, initial encounter for closed fracture (principal); G92 Toxic encephalopathy; J69.0 Pneumonitis due to inhalation of food and vomit; F05 Delirium due to known physiological condition; Z85.46 Personal history of malignant neoplasm of prostate; Z51.5 Encounter for palliative care; I25.2 Old myocardial infarction; I25.10 Atherosclerotic heart disease of native coronary artery without angina pectoris; Z87.891 Personal history of nicotine dependence; Z79.82 Long term (current) use of aspirin; Z79.02 Long term (current) use of antithrombotics/antiplatelets; W18.30XA Fall on same level, unspecified, initial encounter; Y93.9 Activity, unspecified; Y92.9 Unspecified place or not applicable; F03.90 Unspecified dementia, unspecified severity, without behavioral disturbance, psychotic disturbance, mood disturbance, and anxiety; R09.02 Hypoxemia; E87.6 Hypokalemia; G62.9 Polyneuropathy, unspecified; N40.1 Benign prostatic hyperplasia with lower urinary tract symptoms; D64.1 Secondary sideroblastic anemia due to disease; R13.10 Dysphagia, unspecified
CPT/HCPCS: 36415; 51701; 70450; 71045; 71046; 72170; 73502; 73564; 80048; 80053; 81003; 82728; 82947; 83540; 83550; 83735; 83880; 84443; 85014; 85018; 85025; 85610; 85730; 86850; 86900; 86901; 88305; 88311; 92526; 92610; 93005; 93010; 94667; 94760; 94762; 96361; 96374; 96375; 96376; 97110; 97116; 97163; 97167; 97530; 97535; 99285-25; A9270-GY; C1776; J0171; J0690; J0735; J1100; J1170; J1630; J1650; J1885; J1940; J2370; J2405; J2543; J2704; J2795; J3010; J7030